=== PATIENT | female | born 1985 | race Caucasian/White ===

== ENCOUNTER 2018-01-10 00:15 | Emergency (ER) | payer OTHER ==
[~2018-01-10] VITALS: Ht 165.1 cm; Wt 72.6 kg
[2018-01-10 00:19] VITALS: BP 138/88
[2018-01-10] MEDS ORDERED: NOHOMEMEDICATIONS (00:23)
[2018-01-10] MEDS ORDERED: NORCO 7.5-3251 EACH PO (00:37)
[2018-01-10] MEDS ORDERED: KEFLEX500 M1 PO (00:37)
== END 2018-01-10 00:40 | disposition home or self-care (01) ==
LOC: M.ERS 00:15
DX: J34.89 Other specified disorders of nose and nasal sinuses (principal)

== ENCOUNTER 2020-11-03 01:00 | Emergency (ER) | payer OTHER, MEDICAID ==
[~2020-11-03] VITALS: Ht 165.1 cm; Wt 72.6 kg
[~2020-11-03 01:00] MED LIST: KEFLEX500 M1 PO; NOHOMEMEDICATIONS; NORCO 7.5-3251 EACH PO
[2020-11-03] MEDS ORDERED: ZOFRAN ODT4 MG PO (02:16)
[2020-11-03 02:28] VITALS: BP 113/77
== END 2020-11-03 02:28 | disposition home or self-care (01) ==
LOC: M.ERS 01:00
DX: R05 Cough (principal); Z20.822 Contact with and (suspected) exposure to COVID-19; R07.89 Other chest pain; R11.0 Nausea; R09.81 Nasal congestion; Z90.49 Acquired absence of other specified parts of digestive tract

== ENCOUNTER 2020-11-17 14:17 | Emergency (ER) | payer OTHER, MEDICAID ==
[~2020-11-17] VITALS: Ht 165.1 cm; Wt 72.6 kg
[~2020-11-17 14:17] MED LIST changes: +ZOFRAN ODT4 MG PO
[2020-11-17 15:55] VITALS: BP 130/92
== END 2020-11-17 15:56 | disposition home or self-care (01) ==
LOC: M.ERS 14:17
DX: Z20.822 Contact with and (suspected) exposure to COVID-19 (principal); Z90.49 Acquired absence of other specified parts of digestive tract; Z79.899 Other long term (current) drug therapy